=== PATIENT | female | born 1945 | race Two or more races ===

== ENCOUNTER 2022-06-07 14:08 | Outpatient (CLI) | payer OTHER ==
[~2022-06-07 14:08] MED LIST: AZITHROMYCIN500 MG PO; CELEBREX100 MG PO; HYZAAR 100-121 UDTAB; MOTRIN IB200 MG; SKELAXIN800 MG PO; VASOTEC10 MG; VOLTAREN100 GM TP; ZYNCOF 20-400120 ML PO
== END 2022-06-07 14:17 | disposition home or self-care (01) ==
LOC: RAD 14:08
PROVIDERS: ATTEND Specialist
DX: M16.11 Unilateral primary osteoarthritis, right hip (principal)

== ENCOUNTER 2023-03-22 19:29 | Emergency (ER) | payer OTHER ==
[~2023-03-22] VITALS: Ht 165.1 cm; Wt 75.3 kg
[2023-03-23] MEDS ORDERED: MELOXICAM15 MG PO (01:48)
== END 2023-03-23 02:03 ==
LOC: ER 19:29
DX: S42.92XA Fracture of left shoulder girdle, part unspecified, initial encounter for closed fracture (principal); W18.30XA Fall on same level, unspecified, initial encounter; Y93.9 Activity, unspecified; Y92.9 Unspecified place or not applicable; Y99.9 Unspecified external cause status
CPT/HCPCS: 73030; 73060; 96372; 99284; J1100; J1885; J2360

== ENCOUNTER 2024-01-28 12:55 | Outpatient (CLI) | payer OTHER ==
[~2024-01-28 12:55] MED LIST changes: +MELOXICAM15 MG PO
== END 2024-01-28 13:06 | disposition home or self-care (01) ==
LOC: RAD 12:55
DX: M19.90 Unspecified osteoarthritis, unspecified site (principal)

== ENCOUNTER 2024-02-09 12:49 | Outpatient (CLI) | payer OTHER | END 2024-02-09 12:50 | disposition home or self-care (01) | LOC: NUCLEAR 12:49 | DX: M81.0 Age-related osteoporosis without current pathological fracture (principal) ==

== ENCOUNTER 2024-04-13 14:09 | Outpatient (CLI) | payer OTHER | END 2024-04-13 14:53 | disposition home or self-care (01) | LOC: MRI 14:09 | CPT/HCPCS: 70551 ==